=== PATIENT | female | born 1975 | race Caucasian/White ===

== ENCOUNTER 2022-10-29 06:53 | Day surgery (SDC) | payer MEDICARE, MEDICAID ==
[~2022-10-29] VITALS: Ht 167.6 cm; Wt 41.7 kg
[~2022-10-29 06:53] MED LIST: AZELASTINE HCL0.1 % NAB; B121000 MC1 PO; CLINDAMYCIN VA; DIFLUCAN150 MG PO; LEXAPRO10 MG PO; LEXAPRO20 MG PO; MACROBID100 M1 PO; METRONIDAZOLE500 MG PO; PROTONIX40 M2 PO; XANAX0.5 MG PO
[2022-10-29 09:53] VITALS: BP 95/61
[2022-10-29] MEDS ORDERED: PROTONIX40 M2 PO (09:59)
== END 2022-10-29 10:05 | disposition home or self-care (01) ==
LOC: ORM 06:53
PROVIDERS: ATTEND Surgery
PROC: 0DJD8ZZ Inspection of Lower Intestinal Tract, Via Natural or Artificial Opening Endoscopic (ICD-10-PCS; principal; 2022-10-29)
PROC: 0DB48ZX Excision of Esophagogastric Junction, Via Natural or Artificial Opening Endoscopic, Diagnostic (ICD-10-PCS; 2022-10-29)
DX: R10.32 Left lower quadrant pain (principal); R63.4 Abnormal weight loss; K64.8 Other hemorrhoids; K21.9 Gastro-esophageal reflux disease without esophagitis; F41.9 Anxiety disorder, unspecified; F32.A Depression, unspecified; F17.210 Nicotine dependence, cigarettes, uncomplicated; Z90.49 Acquired absence of other specified parts of digestive tract; Z85.01 Personal history of malignant neoplasm of esophagus